=== PATIENT | female | born 1950 | race Caucasian/White ===

== ENCOUNTER → 2022-10-04 | Outpatient (CLI) | payer MEDICARE, SELFPAY ==
--- NOTE | 2022-10-04 18:30 | US_ITS ---
EXAM: US RETROPERITONEAL LIMITED, RENAL CLINICAL INDICATION: UTI TECHNIQUE: Limited grayscale and color Doppler sonographic evaluation of the retroperitoneum was performed. This report was created using [employer] report generation technology. COMPARISON: None. FINDINGS: Kidneys are normal in size without stones, masses or hydronephrosis. Minimal postvoid residual bladder with no bladder wall thickening or intraluminal abnormalities. Incidental right adnexa thin-walled cyst, likely benign measuring 5.4 x 5.3 x 6.0 cm. US/Kidney and Bladder IMPRESSION: 1. Incidental right adnexa thin-walled cyst, likely benign measuring 5.4 x 5.3 x 6.0 cm. 2. Unremarkable kidneys/bladder. Electronically Signed: Holland Tabor MD at 22:11 EST ,
== END | disposition home or self-care (01) ==
PROVIDERS: Visit Provider Urology
DX: N39.0 Urinary tract infection, site not specified (principal)
CPT/HCPCS: 76770